=== PATIENT | female | born 1990 | race Caucasian/White ===

== ENCOUNTER → 2016-12-04 | Outpatient (CLI) | payer OTHER | END | disposition home or self-care (01) | LOC: C.PAPS 08:20 | PROVIDERS: ATTEND Obstetrics & Gynecology | DX: Z12.4 Encounter for screening for malignant neoplasm of cervix (principal) ==

== ENCOUNTER → 2017-02-09 | Outpatient (CLI) | payer OTHER | END | disposition home or self-care (01) | LOC: C.PATHSPEC 14:33 | PROVIDERS: ATTEND Dermatology | DX: D23.72 Other benign neoplasm of skin of left lower limb, including hip (principal) ==

== ENCOUNTER → 2017-05-23 | Outpatient (CLI) | payer OTHER | END | disposition home or self-care (01) | LOC: C.LABPVFM 07:45 | PROVIDERS: ATTEND Family Medicine | DX: N83.209 Unspecified ovarian cyst, unspecified side (principal) ==

== ENCOUNTER → 2017-08-09 | Outpatient (CLI) | payer OTHER ==
[2017-08-09 14:02] LABS: BLOOD UREA NITROGEN 17 mg/dl (7-18); CREATININE 1.01 mg/dl (0.60-1.20); GLUCOSE 86 mg/dl (70-99)
[2017-08-09 14:03] LABS: CALCIUM 8.4 mg/dl (8.5-10.1); CARBON DIOXIDE 26 mmol/L (21-32); CHOLESTEROL 106 mg/dl (0-200); LDL CHOLESTEROL CALCULATED 29 mg/dl; POTASSIUM 4.3 mmol/L (3.5-5.1); SODIUM 135 mmol/L (136-145)
== END | disposition home or self-care (01) ==
LOC: C.LABPVFM 07:50
PROVIDERS: ATTEND Family Medicine
DX: Z13.220 Encounter for screening for lipoid disorders (principal); Z13.1 Encounter for screening for diabetes mellitus

== ENCOUNTER 2019-07-01 07:39 | Inpatient (IN) ==
[2019-07-01] MEDS ORDERED: OXYTOCIN 30 UNITS/500 ML BAG IV PRN ×3 (08:42→20:20)
[2019-07-01 09:11] LABS: Hematocrit (blood only) 35.1 % (37-47); Hemoglobin 12.1 g/dL (12.0-16.0); Mean Corpuscular Hemoglobin 32.9 pg (25-34); Mean Corpuscular Volume 95.4 fL (80-100); Mean Platelet Volume 10.2 fL (7.4-10.4); Platelet Count 215 K/uL (130-400); RDW Coefficient of Variation 12.7 % (11.5-14.5); RDW Standard Deviation 44.3 fL (36.4-46.3); Red Blood Count 3.68 M/uL (4.2-5.4); White Blood Count 8.08 K/uL (4.8-10.8)
[2019-07-01] MEDS: LACTATED RINGER'S 1,000 ML IV PRN ×2 (09:12→16:30)
[2019-07-01 09:24] LABS: Mean Corpuscular Hgb Conc 34.5 g/dL (32-36)
--- NOTE | 2019-07-01 10:54 | History & Physical Report ---
Date of Service July 01, 2019 Assessment & Plan (1) : Admit to L&D, EFM/toco, IV fluids, labs. Will begin pitocin, discussed that may need AROM. Patient does not desire epidural. History of Present Illness Chief Complaint: induction of labor Primary Care Provider: Antoinette Muhammad MD 28yo @ 38 08/04 here for induction of labor for postdates. complicated by h/o melanoma - will need to send placenta to pathology. GBS negative. + movement, no vaginal bleeding, no leaking fluid, no regular ctx. Allergies Allergy/AdvReac Type Severity Reaction Status Date / Time Sulfa (Sulfonamide Allergy Unknown Verified 07/01/19 08:46 Antibiotics) walnut Allergy Unknown Verified 07/01/19 08:00 Home Medications Home Medications Medication Instructions Recorded Confirmed Type ferrous sulfate 325 mg (65 mg 325 mg PO DAILY 05/02/19 07/01/19 History iron) tablet,delayed release PNV cmb#95-ferrous fumarate-FA 1 tab PO DAILY 07/01/19 07/01/19 History [] calcium acetate 667 mg PO DAILY 07/01/19 07/01/19 History docosahexaenoic acid [DHA 1 mg PO DAILY 07/01/19 07/01/19 History Algal-900] mecobalamin (vitamin B12) [B12 1 mcg PO DAILY 07/01/19 07/01/19 History Active] Patient History Medical History Malignant melanoma Ovarian cyst Varicella Surgical History S/P wisdom tooth extraction Status post tonsillectomy and adenoidectomy Family History Grandmother (Paternal) Diabetes Hypertension Family/Other Down syndrome Grandfather (Maternal) Hypertension Dyslipidemia Mother Dyslipidemia Denies family history of Ovarian cancer Breast cancer Colorectal cancer Social History Preferred Language: Mohawk Communication Ability: Effective Beliefs That Will Affect Care: None marital status: / Current Living Situation: Significant Other current occupational status: employed Other Information That Helps Us Care for You: No Feels Safe at Home: Yes Safety Concerns: Feels Safe At This Time Smoking Status: Never smoker Hx Alcohol Use: No Hx Substance Use: No Review of Systems All systems reviewed & are unremarkable except as noted in HPI & below Physical Exam Physical Exam: Cervix: 2-3/90/-2 Constitutional: WD/WN, vitals as above Respiratory: normal respiratory effort, lungs clear to auscultation no respiratory distress Cardiovascular: Rate/Rhythm: regular rate and regular rhythm Gastrointestinal (Abdomen): Inspection/Auscultation: abdomen normal to inspection Percussion/Palpation: abdomen soft; abdomen nontender Gravid. No s/s chorio or abruption. Skin: no rashes, warm and dry Psychiatric: A+Ox3, euthymic affect Results & Data Vital Signs (Past 12 Hours) Vital Signs Temp Pulse Resp BP 07/01/19 10:15 86 107/71 07/01/19 09:16 86 111/67 07/01/19 08:05 36.9 C 16 07/01/19 07:49 93 H 116/70 Monitoring External Monitor FHT Cat 1 Tocodynamometer No reg ctx Coding Level of Care Code None Diagnoses Z34.90
--- NOTE | 2019-07-01 13:26 | Labor Progress Brief Note ---
Date of Service July 01, 2019 Subjective Starting to feel cramping. FHT Cat 1 [place] Q 2-4 SVE /-2 AROM performed for clear fluid. Continue to labor. Results & Data Vital Signs (Past 12 Hours) Vital Signs Temp Pulse Resp BP 07/01/19 12:21 36.3 C L 72 16 105/67 07/01/19 11:14 83 118/74 07/01/19 10:15 86 107/71 07/01/19 09:16 86 111/67 07/01/19 08:05 36.9 C 16 07/01/19 07:49 93 H 116/70 Coding Level of Care Code None
[2019-07-01] MEDS ORDERED: ePHEDrine sulfate 50 MG/ML AMP ONE (16:25)
[2019-07-01] MEDS ORDERED: fentaNYL citrate 100 MCG/2 ML VIAL ONE (16:25)
[2019-07-01] MEDS ORDERED: BUPIVACAINE 0.25% 30 ML VIAL ONE (16:25)
[2019-07-01] MEDS ORDERED: fentaNYL 2MCG/ML ROPIV 1.25MG/ML 100 ML BAG EPI ONE (16:26)
--- NOTE | 2019-07-01 17:30 | Anesthesiology Consultation ---
Date of Service July 01, 2019 Assessment & Plan Chart Review Chart Review: Acceptable Risk for Labor Epidural Consults Requested none History Height/Weight Height: 5 ft 4 in Weight: 68.946 kg Allergies Allergy/AdvReac Type Severity Reaction Status Date / Time Sulfa (Sulfonamide Allergy Unknown Verified 07/01/19 08:46 Antibiotics) walnut Allergy Unknown Verified 07/01/19 08:00 Medications Home Medications Medication Instructions Recorded Confirmed Last Taken ferrous sulfate 325 mg (65 mg 325 mg PO DAILY 05/02/19 07/01/19 Unknown iron) tablet,delayed release PNV cmb#95-ferrous fumarate-FA 1 tab PO DAILY 07/01/19 07/01/19 07/01/19 [] calcium acetate 667 mg PO DAILY 07/01/19 07/01/19 07/01/19 docosahexaenoic acid [DHA 1 mg PO DAILY 07/01/19 07/01/19 07/01/19 Algal-900] mecobalamin (vitamin B12) [B12 1 mcg PO DAILY 07/01/19 07/01/19 07/01/19 Active] Active Medications Generic Name Dose Route Start Last Admin Trade Name Freq PRN Reason Stop Dose Admin Lactated Ringer's 1,000 mls @ 125 mls/hr 07/01/19 08:42 07/01/19 16:55 Lr IV 07/03/19 08:41 125 mls/hr .Q8H PRN Infusion L&D Protocol Protocol Oxytocin 30 units in 500 mls @ 13 mls/hr 07/01/19 08:43 07/01/19 12:55 Pitocin IV 07/03/19 08:42 0.78 units/hr .Q24H PRN 13 mls/hr Labor Induction/Augmentation Titration Protocol 0.78 UNITS/HR Past Medical History Medical History Malignant melanoma Ovarian cyst Varicella Past Family History Family History Grandmother (Paternal) Diabetes Hypertension Family/Other Down syndrome Grandfather (Maternal) Hypertension Dyslipidemia Mother Dyslipidemia Denies family history of Ovarian cancer Breast cancer Colorectal cancer Past Surgical History Surgical History S/P wisdom tooth extraction Status post tonsillectomy and adenoidectomy Social History Smoking Status: Never smoker Hx Alcohol Use: No Hx Substance Use: No Physical Exam Vital Signs Last Vital Signs Temp 36.3 C L 07/01/19 12:21 Pulse 99 H 07/01/19 17:25 Resp 16 07/01/19 12:21 BP 101/64 07/01/19 17:25 Pulse Ox 89 L 07/01/19 17:24 Testing Laboratory Results 07/01/19 08:54
[2019-07-01] MEDS ORDERED: DiphenhydrAMINE HCL 50 MG/ML VIAL IV PRN (17:31)
[2019-07-01] MEDS ORDERED: NALOXONE HCL 0.4 MG/1 ML VIAL/CARP IV PRN (17:31)
[2019-07-01] MEDS ORDERED: NALBUPHINE HCL INJ 10 MG/ML AMP IV PRN (17:31)
[2019-07-01] MEDS ORDERED: NALOXONE HCL 1 MG in SODIUM CHLORIDE 0.9% 1000ML 1,000 ML IV PRN (17:31)
[2019-07-01] MEDS ORDERED: ePHEDrine sulfate 50 MG/ML AMP IV PRN (17:31)
[2019-07-01] MEDS ORDERED: fentaNYL 2MCG/ML ROPIV 1.25MG/ML 100 ML BAG EPI PRN (17:31)
--- NOTE | 2019-07-01 17:52 | Labor Progress Brief Note ---
Date of Service July 01, 2019 Subjective Still with pain with ctx with epidural. FHT 140s, mod theresa, +accels, +variable decels SVE: 10/100/+1 Will labor down and begin to push when she feels pressure. Results & Data Vital Signs (Past 12 Hours) Vital Signs Temp Pulse Resp BP Pulse Ox 07/01/19 17:49 90 103/72 100 07/01/19 17:45 91 H 125/66 07/01/19 17:44 94 H 100 07/01/19 17:39 91 H 100 07/01/19 17:36 96 H 107/63 92 07/01/19 17:34 97 H 100 07/01/19 17:32 99 H 104/57 L 07/01/19 17:29 101 H 100 07/01/19 17:25 99 H 101/64 07/01/19 17:24 107 H 89 L 07/01/19 17:23 100 H 106/61 07/01/19 17:21 98 H 116/63 07/01/19 17:19 97 H 111/61 99 07/01/19 17:17 117 H 119/77 07/01/19 17:15 112 H 120/73 07/01/19 17:14 84 127/69 99 07/01/19 17:09 108 H 80 L 07/01/19 17:05 99 H 121/68 07/01/19 17:04 100 H 95 07/01/19 17:02 98 H 91 07/01/19 16:59 102 H 84 L 07/01/19 16:57 94 H 87 L 07/01/19 16:54 111 H 99 07/01/19 16:51 81 130/90 07/01/19 16:50 104 H 93 07/01/19 16:49 100 H 97 07/01/19 16:44 100 H 90 07/01/19 16:36 90 130/68 07/01/19 16:35 101 H 91 07/01/19 16:34 101 H 97 07/01/19 16:21 104 H 108/52 L 07/01/19 16:05 83 123/80 07/01/19 15:35 84 129/76 07/01/19 15:20 100 H 118/95 07/01/19 14:28 63 122/71 07/01/19 13:28 84 115/75 07/01/19 12:21 36.3 C L 72 16 105/67 07/01/19 11:14 83 118/74 07/01/19 10:15 86 107/71 07/01/19 09:16 86 111/67 07/01/19 08:05 36.9 C 16 07/01/19 07:49 93 H 116/70 Coding Level of Care Code None
[2019-07-01] MEDS ORDERED: METHYLERGONOVINE MALEATE 0.2 MG/ML AMP ONE (19:41)
--- NOTE | 2019-07-01 20:01 | Delivery Summary ---
Vaginal Delivery Summary Date of Service July 01, 2019 Vaginal Delivery Summary Vaginal Delivery Summary: Pre-delivery diagnoses: 28yo @ 38 4/7, IOL for postdates, h/o melanoma Post-delivery diagnoses: same Procedure: spontaneous vaginal delivery, manual extraction of placenta Surgeon: Ofleia Ochoa DO Complications: none Findings: Viable male . Apgars: 8/9 . Weight pending, please see nursery records Estimated blood loss: 400ml Description of delivery: The patient progressed to complete with epidural anesthesia. She then began to push. She spontaneously vaginally delivered a viable from the cephalic presentation. The head delivered in PRINCESS position. No nuchal. The anterior shoulder delivered, followed by the posterior shoulder, followed by the body. The baby was placed on mother's abdomen and a spontaneous cry was heard. Delayed cord clamping was employed, and the cord was doubly clamped and cut. Cord blood was obtained. During delivery of the placenta, avulsion of the cord occurred during gentle traction. Therefore, the placenta was delivered by manual extraction. The uterus and vagina were swept of clots and debris. IV pitocin was given. The uterus was initially boggy and atonic, therefore one dose of methergine was given and the bladder was emptied with a red-rubber catheter. The uterus became firm with manual uterine massage. The cervix, vagina, and perineum were inspected and a superficial 1st degree laceration was noted and because it was hemostatic, did not require repair. Excellent hemostasis was observed. Uterus was firm. The mother and baby are recovering in stable and good condition in the room. Sponge and instrument counts were correct x 2. I discussed the manual extraction of placenta and avulsion of cord with patient, will give ancef x 24h to reduce risk of infection. Also discussed need to send placenta to path d/t h/o melanoma. Ofelia Ochoa DO FACOO
[2019-07-01] MEDS ORDERED: HYDROCORTISONE ACETATE 25 MG SUPP PR PRN (20:20)
[2019-07-01] MEDS ORDERED: ACETAMINOPHEN 325 MG TAB PO PRN (20:20)
[2019-07-01] MEDS ORDERED: METHYLERGONOVINE MALEATE 0.2 MG/ML AMP IM ONE (20:20)
[2019-07-01] MEDS ORDERED: SUPERCREAM 0.870% 15 GM JAR EXT PRN (20:20)
[2019-07-01] MEDS ORDERED: BENZOCAINE 20% AER SPR 82.5 GM CAN EXT PRN (20:20)
[2019-07-01] MEDS ORDERED: bisacodyL 10 MG SUPP PR PRN (20:20)
[2019-07-01] MEDS ORDERED: DIPHTHERIA/TETANUS/PERTUSSIS 0.5 ML SYR/VIAL IM ONE (20:20)
[2019-07-01] MEDS ORDERED: OXYCODONE/ACETAMINOPHEN 5mg/325mg TAB PO PRN (20:20)
[2019-07-01] MEDS: DOCUSATE SODIUM 100 MG CAP PO SCH (21:10)
[2019-07-01] MEDS: CEFAZOLIN 1000MG 1,000 MG/7.5 ML SYR IV SCH (21:16)
--- NOTE | 2019-07-01 23:22 | Anesthesia Procedure Note ---
Date of Service July 01, 2019 Anesthesia Post Epidural Note Vital Signs Vital Signs: Temp Pulse Resp BP Pulse Ox 36.4 C L 83 18 122/74 100 07/01/19 22:15 07/01/19 22:15 07/01/19 22:15 07/01/19 22:15 07/01/19 22:15 Pain Intensity Lower Medial Abdomen: Pain Intensity: 10 Notes Mental Status: alert / awake / arousable Nausea / Vomiting: adequately controlled Pain: adequately controlled Airway Patency, RR, SpO2: stable & adequate BP & HR: stable & adequate Hydration State: stable & adequate Neuraxial Anesthesia: was administered and sensory block is resolving Anesthetic Complications: no major complications apparent and Pt Satisfied with anesthetic care Epidural: Removed without complications and With tip intact
[2019-07-01] MEDS: IBUPROFEN 600 MG TAB PO PRN (23:34)
[2019-07-02] MEDS: IBUPROFEN 600 MG TAB PO PRN ×3 (03:23→13:56)
[2019-07-02] MEDS: CEFAZOLIN 1000MG 1,000 MG/7.5 ML SYR IV SCH ×2 (04:14→13:39)
--- NOTE | 2019-07-02 06:08 | Obstetrical Progress Note ---
Date of Service <Brayan Cisneros MD - Last Filed: 07/02/19 06:23> July 02, 2019 Assessment & Plan <Brayan Cisneros MD - Last Filed: 07/02/19 06:23> (1) : PPD#1 - continue routine care - encourage ambulation, and oral intake - after discharge will have follow-up in 6 weeks Subjective <Brayan Cisneros MD - Last Filed: 07/02/19 06:23> Ms. Christensen is a 28 y/o female ; PPD #1 following spontaneous vaginal delivery; doing well this morning; having minimal abdominal cramping/pain; voiding well; tolerating meals overnight; and able to ambulate some; some persistent spotting with intermittent improvement this morning. Review of Systems Constitutional: denies fever; chills; sweats; headache Respiratory: denies shortness of breath, difficulty breathing Cardiac: denies chest pain; palpitations; chest pressure Breast: denies breast pain : denies dysuria Physical Exam <Brayan Cisneros MD - Last Filed: 07/02/19 06:23> General: alert; oriented; no acute distress Cardiac: RRR; no m/g/r Respiratory: CTAB a/p; no wheezes/rales/rhonchi; no increased work of breathing; symmetrical chest rise; no respiratory distress Abdomen: soft; NT/ND; bowel sounds positive Uterus: uterine fundus firm; palpable 1cm below umbilicus Lower extrem: no lower extremity edema or swelling; no deep calf pain; Taylor's sign negative b/l Results & Data <Brayan Cisneros MD - Last Filed: 07/02/19 06:23> Vital Signs (Past 12 Hours) Vital Signs Temp Pulse Pulse Resp BP BP Pulse Ox 07/02/19 03:30 36.6 C 67 16 106/67 97 07/01/19 23:15 36.5 C 89 17 119/73 96 07/01/19 22:15 36.4 C L 83 18 122/74 100 07/01/19 21:52 86 112/72 07/01/19 21:37 90 115/73 07/01/19 21:23 87 111/66 07/01/19 20:53 86 108/64 07/01/19 20:37 83 111/71 03/03/20 20:22 81 109/70 07/01/19 20:07 82 115/73 07/01/19 19:52 92 H 109/66 93 07/01/19 19:51 36.7 C 18 07/01/19 19:50 102 H 97 07/01/19 19:45 90 97 07/01/19 19:42 90 103/62 07/01/19 19:40 82 97 07/01/19 19:37 99 H 113/61 07/01/19 19:35 97 H 99 07/01/19 19:29 92 H 99 07/01/19 19:24 105 H 127/64 100 07/01/19 19:19 96 H 99 07/01/19 19:14 128 H 100 07/01/19 19:09 94 H 100 07/01/19 19:08 95 H 130/79 07/01/19 19:05 36.7 C 20 07/01/19 19:04 87 100 07/01/19 19:01 103 H 93 07/01/19 18:59 98 H 100 07/01/19 18:54 92 H 118/74 94 07/01/19 18:52 98 H 87 L 07/01/19 18:49 87 100 07/01/19 18:47 92 H 91 07/01/19 18:44 80 97 07/01/19 18:39 76 99 07/01/19 18:37 88 122/73 07/01/19 18:34 81 99 07/01/19 18:32 36.9 C 73 18 124/74 07/01/19 18:29 84 100 07/01/19 18:27 94 H 120/79 93 07/01/19 18:24 87 100 07/01/19 18:22 84 126/79 07/01/19 18:19 91 H 99 07/01/19 18:16 82 18 113/75 07/01/19 18:14 79 97 07/01/19 18:13 77 94 07/01/19 18:11 78 117/77 07/01/19 18:09 80 100 07/01/19 18:08 83 94 07/01/19 18:07 72 118/78 Laboratory Results 07/01/19 Range/Units 08:54 WBC 8.08 (4.8-10.8) K/uL RBC 3.68 L (4.2-5.4) M/uL Hgb 12.1 (12.0-16.0) g/dL Hct 35.1 L (37-47) % MCV 95.4 (80-100) fL MCH 32.9 (25-34) pg MCHC 34.5 (32-36) g/dL RDW Std Deviation 44.3 (36.4-46.3) fL RDW Coeff of [place] 12.7 (11.5-14.5) % Plt Count 215 (130-400) K/uL MPV 10.2 (7.4-10.4) fL Medications Administered Current Inpatient Medications Acetaminophen (Tylenol) 650 mg PO Q6H PRN PRN Reason: Pain/LLOYD/Fever Stop: 07/31/19 20:19 Benzocaine (Dermoplast Pain Relieving [place]) 1 appln EXT PRN PRN PRN Reason: Perineal Discomfort Stop: 07/31/19 20:19 Last Admin: 07/02/19 03:23 Dose: 82.5 appln Documented by: Bisacodyl (Dulcolax) 5 mg PO 1999 [facility] Stop: 07/02/19 20:01 Bisacodyl (Dulcolax) 10 mg [place] DAILY PRN PRN Reason: No BM on 2nd post- day Stop: 07/31/19 20:19 Calcium Acetate (Phoslo) 667 mg PO DAILY [facility] Stop: 08/01/19 08:59 Cocaine HCl (Supercream 0.870%) 1 gm EXT BID PRN PRN Reason: Hemorrhoidal Inflammation Stop: 07/15/19 20:19 Docusate Sodium (Colace) 100 mg PO DAILY@08,21 [facility] Stop: 07/31/19 20:59 Last Admin: 07/01/19 21:10 Dose: Not Given Documented by: Ferrous Sulfate (Feosol) 325 mg PO DAILY [facility] Stop: 08/01/19 08:59 Hydrocortisone (Anusol Hc) 25 mg SD BID PRN PRN Reason: Hemorrhoidal Inflammation Stop: 07/31/19 20:19 Cefazolin Sodium (Ancef 1000mg) 1,000 mg in 7.5 mls @ 2.5 mls/min IV Q8H [facility] Stop: 07/02/19 13:02 Last Admin: 07/02/19 04:14 Dose: 2.5 mls/min Documented by: Oxytocin (Pitocin) 30 units in 500 mls @ 333.333 mls/hr IV .Q1H30M PRN; Protocol PRN Reason: Bleeding Control Stop: 07/31/19 20:19 Ibuprofen (Motrin) 600 mg PO Q4H PRN PRN Reason: Pain/LLOYD/Cramping/Fever Stop: 07/31/19 20:19 Last Admin: 07/02/19 03:23 Dose: 600 mg Documented by: Oxycodone/Acetaminophen (Percocet 5mg/325mg) 1 tab PO Q4H PRN PRN Reason: Pain not relieved by... Stop: 07/15/19 20:19 Prenat Multivit/[place]/Iron/Folic Ac ( Vitamin) 1 tab PO DAILY@08 [facility] Stop: 08/01/19 07:59 <Ofelia Ochoa DO - Last Filed: 07/02/19 07:12> Co-Signing Physician Notes Resident Physician Supervision Note: I was present with Dr. Cisneros during the history and exam. I discussed the case with the resident and agree with the findings and plan as documented in the note. Any exceptions or clarifications are listed here: PPD#1 doing well. Anticipate DC home tomorrow. Documented By: Ofelia Ochoa DO Resident Activity Tracking <Brayan Cisneros MD - Last Filed: 07/02/19 06:23> Resident Involvement: Resident Care Provided Care Provided: OB Delivery
[2019-07-02 07:23] LABS: Hematocrit (blood only) 30.8 % (37-47); Hemoglobin 10.6 g/dL (12.0-16.0)
[2019-07-02] MEDS ORDERED: FERROUS SULFATE 325 MG TAB PO ONE (07:36)
[2019-07-02] MEDS: CALCIUM ACETATE 667 MG CAP PO SCH (07:37)
[2019-07-02] MEDS: DOCUSATE SODIUM 100 MG CAP PO SCH ×2 (07:38→20:22)
[2019-07-02] MEDS: PRENATAL VITAMIN 1 TAB PO SCH (07:38)
[2019-07-02] MEDS: FERROUS SULFATE 325 MG TAB PO SCH (08:18)
[2019-07-02] MEDS ORDERED: DOCOSAHEXAENOIC ACID PO SCH (09:00)
[2019-07-02] MEDS ORDERED: NON-FORMULARY MEDICATION (Pnv Cmb#95-Ferrous Fumarate-Fa [Prenatal] 1 TAB) PO SCH (09:00)
[2019-07-02] MEDS ORDERED: MECOBALAMIN PO SCH (09:00)
[2019-07-02] MEDS ORDERED: bisacodyL 5 MG TABEC PO SCH (20:00)
[2019-07-03] MEDS: IBUPROFEN 600 MG TAB PO PRN ×2 (01:40→08:51)
--- NOTE | 2019-07-03 06:52 | Obstetrical Progress Note ---
Date of Service <Brayan Cisneros MD - Last Filed: 07/03/19 07:20> July 03, 2019 Assessment & Plan <Brayan Cisneros MD - Last Filed: 07/03/19 07:20> (1) : PPD#1 - continue routine care - encourage ambulation, and oral intake - after discharge will have follow-up in 6 weeks Subjective <Brayan Cisneros MD - Last Filed: 07/03/19 07:20> Ms. Christensen is a 28 y/o female ; PPD #2 following spontaneous vaginal delivery; doing well this morning; having minimal abdominal cramping/pain; voiding well; tolerating meals overnight; and able to ambulate some; some persistent spotting with intermittent improvement this morning. Review of Systems Constitutional: denies fever; chills; sweats; headache Respiratory: denies shortness of breath, difficulty breathing Cardiac: denies chest pain; palpitations; chest pressure Breast: denies breast pain : denies dysuria Physical Exam <Brayan Cisneros MD - Last Filed: 07/03/19 07:20> General: alert; oriented; no acute distress Cardiac: RRR; no m/g/r Respiratory: CTAB a/p; no wheezes/rales/rhonchi; no increased work of breathing; symmetrical chest rise; no respiratory distress Abdomen: soft; NT/ND; bowel sounds positive Uterus: uterine fundus firm; palpable 3cm below umbilicus Lower extrem: 1+ non-pitting edema of lower extrem; no deep calf pain; Taylor's sign negative b/l Results & Data <Brayan Cisneros MD - Last Filed: 07/03/19 07:20> Vital Signs (Past 12 Hours) Vital Signs Temp Pulse Resp BP Pulse Ox 07/02/19 23:30 36.7 C 80 16 119/77 07/02/19 19:30 36.7 C 76 16 130/88 97 Laboratory Results 07/02/19 Range/Units 06:43 Hgb 10.6 L (12.0-16.0) g/dL Hct 30.8 L (37-47) % Medications Administered Current Inpatient Medications Acetaminophen (Tylenol) 650 mg PO Q6H PRN PRN Reason: Pain/LLOYD/Fever Stop: 07/31/19 20:19 Benzocaine (Dermoplast Pain Relieving [place]) 1 appln EXT PRN PRN PRN Reason: Perineal Discomfort Stop: 07/31/19 20:19 Last Admin: 07/02/19 03:23 Dose: 82.5 appln Documented by: Bisacodyl (Dulcolax) 10 mg [place] DAILY PRN PRN Reason: No BM on 2nd post- day Stop: 07/31/19 20:19 Calcium Acetate (Phoslo) 667 mg PO DAILY [facility] Stop: 08/01/19 08:59 Last Admin: 07/02/19 07:37 Dose: 667 mg Documented by: Cocaine HCl (Supercream 0.870%) 1 gm EXT BID PRN PRN Reason: Hemorrhoidal Inflammation Stop: 07/15/19 20:19 Last Admin: 07/02/19 07:48 Dose: 1 gm Documented by: Docusate Sodium (Colace) 100 mg PO DAILY@08,21 [facility] Stop: 07/31/19 20:59 Last Admin: 07/02/19 20:22 Dose: 100 mg Documented by: Ferrous Sulfate (Feosol) 325 mg PO DAILY [facility] Stop: 08/01/19 08:59 Last Admin: 07/02/19 08:18 Dose: Not Given Documented by: Hydrocortisone (Anusol Hc) 25 mg [place] BID PRN PRN Reason: Hemorrhoidal Inflammation Stop: 07/31/19 20:19 Oxytocin (Pitocin) 30 units in 500 mls @ 333.333 mls/hr IV .Q1H30M PRN; Protocol PRN Reason: Bleeding Control Stop: 07/31/19 20:19 Ibuprofen (Motrin) 600 mg PO Q4H PRN PRN Reason: Pain/LLOYD/Cramping/Fever Stop: 07/31/19 20:19 Last Admin: 07/03/19 01:40 Dose: 600 mg Documented by: Oxycodone/Acetaminophen (Percocet 5mg/325mg) 1 tab PO Q4H PRN PRN Reason: Pain not relieved by... Stop: 07/15/19 20:19 Prenat Multivit/[place]/Iron/Folic Ac ( Vitamin) 1 tab PO DAILY@08 [facility] Stop: 08/01/19 07:59 Last Admin: 07/02/19 07:38 Dose: 1 tab Documented by: Shawn Presley MD, FACOG - Last Filed: 07/03/19 08:07> Co-Signing Physician Notes Resident Physician Supervision Note: I was present with Dr. Cisneros during the history and exam. I discussed the case with the resident and agree with the findings and plan as documented in the note. Any exceptions or clarifications are listed here: pt doing well, discussed edema and answered her ?s. eating, voiding, ambulating without problem. . ff 2 down,nt, nt calves. ppd#2 stable for d/c home, f/u 6wks pp check, instructions reviewed. . Documented By: Evelyn Presley MD, FACOG Resident Activity Tracking <Brayan Cisneros MD - Last Filed: 07/03/19 07:20> Resident Involvement: Resident Care Provided Care Provided: OB Delivery
[2019-07-03] MEDS: DOCUSATE SODIUM 100 MG CAP PO SCH (08:50)
[2019-07-03] MEDS: PRENATAL VITAMIN 1 TAB PO SCH (08:50)
[2019-07-03] MEDS: FERROUS SULFATE 325 MG TAB PO SCH (08:50)
[2019-07-03] MEDS: CALCIUM ACETATE 667 MG CAP PO SCH (08:53)
== END 2019-07-03 14:00 | disposition home or self-care (01) | DRG 807 ==
LOC: 4S1 07:39 → 4S2 22:15

== ENCOUNTER 2021-12-16 10:28 | Inpatient (IN) ==
--- NOTE | 2021-12-16 11:03 | History & Physical Report ---
Date of Service December 16, 2021 History of Present Illness Primary Care Provider: NO PCP Allergies Allergy/AdvReac Type Severity Reaction Status Date / Time walnut Allergy Intermediate Unknown Verified 12/16/21 10:45 Sulfa (Sulfonamide Allergy Unknown Verified 12/16/21 10:45 Antibiotics) Home Medications Medication Instructions Recorded Confirmed Type docosahexaenoic acid 300 mg 1 mg PO DAILY 07/01/19 12/13/21 History capsule (DHA Algal-900) vit no.95-ferrous 1 tab PO DAILY 07/01/19 12/16/21 History fumarate 28 mg-folic acid 800 mcg tablet () cholecalciferol (vitamin D3) 125 125 mcg PO DAILY 12/16/21 12/16/21 History mcg (5,000 unit) tablet (Vitamin D3) Patient History Medical History Malignant melanoma Ovarian cyst Varicella Surgical History S/P wisdom tooth extraction Status post tonsillectomy and adenoidectomy Family History Grandmother (Paternal) Diabetes Hypertension Family/Other Down syndrome Grandfather (Maternal) Hypertension Dyslipidemia Mother Dyslipidemia Denies family history of Ovarian cancer Breast cancer Colorectal cancer Social History (Updated 12/16/21 @ 10:43 by Ashanti Miller RN) Smoking Status: Never smoker Hx Alcohol Use: No Hx Substance Use: No Preferred Language: Tongan Communication Ability: Effective Visual Impairment: No Limitations Hearing Ability: Normal Population Health Manager Required: No Beliefs That Will Affect Care: None marital status: / marital status details: regulo Guillermo (42) [phone] Current Living Situation: Family and Significant Other Current Living Situation Comment: lives with fob, son, dog, cat-fob changing litter current occupational status: employed current occupation: [employer] m[employer] Other Information That Helps Us Care for You: No Feels Safe at Home: Yes Safety Concerns: Feels Safe At This Time Gender Identity: Female Assistive Devices: None Results & Data ([facility]) Vital Signs (Past 12 Hours) Vital Signs Temp Pulse Resp BP 08/19/22 10:35 36.9 C 100 H 20 132/81
[2021-12-16] MEDS ORDERED: OXYTOCIN 30 UNITS/500 ML BAG IV PRN ×3 (11:26→19:54)
[2021-12-16] MEDS ORDERED: LACTATED RINGER'S 1,000 ML IV PRN (11:26)
[2021-12-16] MEDS ORDERED: PENICILLIN G POTASSIUM 3 MU in DEXTROSE 5% 100 ML IV PRN (11:45)
[2021-12-16 11:51] LABS: Hematocrit (blood only) 32.6 % (34.1-44.9); Hemoglobin 11.3 g/dl (12.0-16.0); Mean Corpuscular Hgb Conc 34.7 g/dL (32.0-36.0); Mean Corpuscular Volume 92.4 fL (80.0-100.0); Platelet Count 226 K/uL (130-400); RDW Coefficient of Variation 12.8 % (11.5-14.5); RDW Standard Deviation 43.4 fL (36.4-46.3); Red Blood Count 3.53 M/uL (3.93-5.22); White Blood Count 10.32 K/ul (4.8-10.8)
[2021-12-16] MEDS ORDERED: PENICILLIN G POTASSIUM 6 MU in DEXTROSE 5% 250 ML IV ONE (12:00)
--- NOTE | 2021-12-16 12:27 | History & Physical Report ---
Date of Service December 16, 2021 Assessment & Plan (1) Placental cyst affecting in second trimester: (2) Group beta Strep positive: (3) PROM (premature rupture of membranes): (4) Personal history of malignant melanoma of skin: Plan 31 y/o at 37 6/7 wga presents w/ PROM VSS Fetus cat 1 PROM - pt is 3cm, not been checked yet so not sure if this is progression. Discussed expectant management for few hours, ambulate and see if will progress. Discussed pitocin if does not in a few hours due to GBS+, pt would prefer to avoid pitocin if possible. Discussed RVB if not changing at that time with GBS+ GBS+, pcn ordered epidural prn Admission and Anticipated Discharge Date Admission Date: December 16, 2021 History of Present Illness Chief Complaint: LOF Primary Care Provider: ARTIE PCP 31 y/o at 37 6/7 wga presents due to LOF since 7am. +FM; denies reg ctx, VB PNI Hx malig melanoma simple placental cyst at 24 wks s/p MFM Past [employer] hx: G1 2018 SAB G2 2019 G3 current denies hx STIs 06/2021 neg cotest Allergies Allergy/AdvReac Type Severity Reaction Status Date / Time walnut Allergy Intermediate Unknown Verified 12/16/21 10:45 Sulfa (Sulfonamide Allergy Unknown Verified 12/16/21 10:45 Antibiotics) Home Medications Medication Instructions Recorded Confirmed Type docosahexaenoic acid 300 mg 1 mg PO DAILY 07/01/19 12/13/21 History capsule (DHA Algal-900) vit no.95-ferrous 1 tab PO DAILY 07/01/19 12/16/21 History fumarate 28 mg-folic acid 800 mcg tablet () cholecalciferol (vitamin D3) 125 125 mcg PO DAILY 12/16/21 12/16/21 History mcg (5,000 unit) tablet (Vitamin D3) Patient History Medical History (Updated 12/16/21 @ 12:25 by Luna Helton MD) Malignant melanoma Ovarian cyst Varicella Surgical History S/P wisdom tooth extraction Status post tonsillectomy and adenoidectomy Family History Grandmother (Paternal) Diabetes Hypertension Family/Other Down syndrome Grandfather (Maternal) Hypertension Dyslipidemia Mother Dyslipidemia Denies family history of Ovarian cancer Breast cancer Colorectal cancer Social History (Updated 12/16/21 @ 10:43 by Ashanti Miller RN) Smoking Status: Never smoker Hx Alcohol Use: No Hx Substance Use: No Preferred Language: Slovak Communication Ability: Effective Visual Impairment: No Limitations Hearing Ability: Normal Fur Comber Required: No Beliefs That Will Affect Care: None marital status: / marital status details: fob Emil Guillermo (42) [phone] Current Living Situation: Family and Significant Other Current Living Situation Comment: lives with fob, son, dog, cat-fob changing litter current occupational status: employed 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 Other Information That Helps Us Care for You: No Feels Safe at Home: Yes Safety Concerns: Feels Safe At This Time Gender Identity: Female Assistive Devices: None Physical Exam Genitourinary: OB Exam Monitor Tracing: + external FHT monitor used, + external uterine monitor used (irreg) and + category I (135/mod/+accel/-decel) SVE 3cm by nursing Results & Data ([place]) Vital Signs (Past 12 Hours) Vital Signs Temp Pulse Resp BP 12/16/21 10:35 98.4 F 100 H 20 132/81 Laboratory Results OB Labs: Blood Type A Positive 06/28/21 Antibody ScreenD NEGATIVE 06/28/21 Hemoglobin 11.7 g/dl (12.0-16.0) L 11/08/21 Hematocrit 34.8 % (34.1-44.9) 11/08/21 Mean Corpuscular Volume 91.5 fL (80-100) 06/28/21 Platelet Count 314 K/uL (130-400) 06/28/21 Rubella IgG Antibody Immune (Immune) 06/28/21 Rapid Plasma Reagin Nonreactive (Nonreactive) 06/28/21 Hepatitis B Surface Antigen Neg (Neg) 06/28/21 Hepatitis C Antibody Neg (Neg) 06/28/21 HIV (1&2) Ab and P24 Ag, 4th Gener Neg (Neg) 06/28/21 Glucose 1 Hour 50 gm Load 111 mg/dl (70-130) 07/20/21 OB Optional Labs: Chlamydia trachomatis RNA NOT DETECTED (NOT DETECTED) 06/28/21 Neisseria gonorrhoeae RNA NOT DETECTED (NOT DETECTED) 06/28/21 Labs Reviewed: Declined MSAFP. low risk panorama, declined cf/sma Diagnostic Findings post plac Coding Level of Care Code None Diagnoses Placental cyst affecting in second trimester O43.192 Group beta Strep positive B95.1 PROM (premature rupture of membranes) O42.90 Personal history of malignant melanoma of skin Z85.820
[2021-12-16] MEDS ORDERED: ePHEDrine sulfate 50 MG/ML AMP ONE (19:04)
[2021-12-16] MEDS ORDERED: SODIUM CHLORIDE 0.9% INJ 10 ML VIAL ONE (19:05)
[2021-12-16] MEDS ORDERED: LIDOCAINE 2%/EPINEPHRINE 1:200,000 20 ML SDV ONE (19:05)
[2021-12-16] MEDS ORDERED: fentaNYL 2MCG/ML ROPIVACAINE 1.25MG/ML 100 ML BAG EPI ONE (19:05)
[2021-12-16] MEDS ORDERED: BUPIVACAINE 0.25% 30 ML VIAL ONE (19:05)
[2021-12-16] MEDS ORDERED: fentaNYL citrate 100 MCG/2 ML VIAL ONE (19:05)
[2021-12-16] MEDS ORDERED: ERYTHROMYCIN OP OINT 1 GM PKT ONE (19:29)
[2021-12-16 19:35] VITALS: O2SAT 100
--- NOTE | 2021-12-16 19:37 | Delivery Summary ---
Vaginal Delivery Summary Date of Service December 16, 2021 Vaginal Delivery Summary Spontaneous vaginal delivery the patient presented for premature rupture of membranes at approximately 38 weeks group B strep positive on presentation at the hospital she was offered oxytocin at that stage T she declined but penicillin was started eventually her contraction pattern was an adequate and that she excepted oxytocin she then delivered a baby in occiput anterior position without epidural baby's mouth was suctioned with bulb gentle traction clear fluid no nuchal cord no excessive force easy delivery live vigorous female infant cord clamped and cut cord blood obtained placenta removed with gentle traction IV Pitocin started uterine tone improved estimated blood loss 150 mL on inspection there were no tears sponge instrument counts correct
[2021-12-16] MEDS ORDERED: IBUPROFEN 600 MG TAB PO PRN (19:54)
[2021-12-16] MEDS ORDERED: bisacodyL 10 MG SUPP PR PRN (19:54)
[2021-12-16] MEDS ORDERED: DIPHTHERIA/TETANUS/PERTUSSIS 0.5 ML SYR/VIAL IM ONE (19:54)
[2021-12-16] MEDS ORDERED: oxyCODONE/ACETAMINOPHEN 5mg/325mg TAB PO PRN (19:54)
[2021-12-16] MEDS ORDERED: BENZOCAINE 20% AER SPR 82.5 GM CAN EXT PRN (19:54)
[2021-12-16] MEDS ORDERED: ACETAMINOPHEN 325 MG TAB PO PRN (19:54)
[2021-12-16] MEDS ORDERED: HYDROCORTISONE ACETATE 25 MG SUPP PR PRN (19:54)
[2021-12-16] MEDS: DOCUSATE SODIUM 100 MG CAP PO SCH (21:41)
--- NOTE | 2021-12-17 06:31 | Obstetrical Progress Note ---
Date of Service <Sunni Friedman DO - Last Filed: 12/17/21 08:09> December 17, 2021 Assessment & Plan <Sunni Friedman DO - Last Filed: 12/17/21 08:09> (1) PROM (premature rupture of membranes): (2) Group beta Strep positive: (3) Placental cyst affecting in second trimester: (4) Encounter for supervision of normal in multigravida: Plan s/p PPD 1: -Vitals reviewed and WNL, Tmax= 36.9 -Hemoglobin reviewed, 11.3 (12/16) -A+, GBS+, rubella immune -Patient is doing well clinically -Encourage ambulation, monitor and treat pain PRN, monitor lochia -Return to normal diet <Alvaro English MD, FACOG - Last Filed: 12/17/21 08:10> (1) PROM (premature rupture of membranes): (2) Group beta Strep positive: (3) Placental cyst affecting in second trimester: (4) Encounter for supervision of normal in multigravida: Subjective <Sunni Friedman DO - Last Filed: 12/17/21 08:09> Peri is a 31 y/o female who is PPD #1 following at 37 6/7 weeks. Patient was seen and examined at bedside. She reports feeling well overall this morning. Pain well managed on analgesics, just notes some back pain this morning. Voiding without issue. Tolerating meals overnight and able to ambulate some. Has some persistent lochia with some improvement this morning. Constitutional: no fever, no chills or no sweats Respiratory: no cough, no dyspnea or no wheezing Cardiovascular: no chest pain, no palpitations or no calf pain Breast: no breast pain Genitourinary (female): no dysuria Neurologic: no headache(s) Physical Exam <Sunni Friedman DO - Last Filed: 12/17/21 08:09> Constitutional WD/WN, vitals as above no acute distress Respiratory no respiratory distress Auscultation: lungs clear to auscultation bilaterally; no rales, no rhonchi and no wheezes Cardiovascular RRR, no murmur, no edema Extremities: no calf tenderness and no edema Negative Taylor's sign bilaterally. Gastrointestinal (Abdomen) Inspection/Auscultation: normal bowel sounds Genitourinary Uterine fundus firm, palpable below the umbilicus. Results & Data ([facility]) <Sunni Friedman, - Last Filed: 12/17/21 08:09> Vital Signs (Past 12 Hours) Vital Signs Temp Pulse Pulse Resp BP BP Pulse Ox 12/17/21 03:10 36.9 C 87 16 109/70 12/16/21 23:00 36.6 C 80 18 104/68 12/16/21 20:32 16 12/16/21 20:17 18 12/16/21 19:48 18 12/16/21 21:02 16 12/16/21 20:02 18 12/16/21 19:32 18 12/16/21 21:32 36.6 C 18 12/16/21 21:32 96 H 12/16/21 21:32 127/71 12/16/21 21:17 97 H 12/16/21 21:17 126/74 12/16/21 21:02 94 H 12/16/21 21:02 125/74 12/16/21 20:47 93 H 12/16/21 20:47 128/74 12/16/21 20:32 90 12/16/21 20:32 124/70 12/16/21 20:17 90 12/16/21 20:17 115/70 12/16/21 20:02 87 12/16/21 20:02 124/69 12/16/21 19:48 94 H 12/16/21 19:48 131/69 12/16/21 19:33 100 12/16/21 19:33 96 H 12/16/21 19:32 101 H 12/16/21 19:32 114/62 12/16/21 19:28 99 12/16/21 19:28 103 H 12/16/21 19:23 99 12/16/21 19:23 111 H 12/16/21 19:18 100 12/16/21 19:18 106 H 12/16/21 19:13 20 12/16/21 19:13 36.3 C L 20 12/16/21 19:13 98 12/16/21 19:13 104 H 12/16/21 19:13 121/58 L O2 Del Method 12/17/21 03:10 Room Air 12/16/21 23:00 Room Air 12/16/21 20:32 12/16/21 20:17 12/16/21 19:48 12/16/21 21:02 12/16/21 20:02 12/16/21 19:32 12/16/21 21:32 12/16/21 21:32 12/16/21 21:32 12/16/21 21:17 12/16/21 21:17 12/16/21 21:02 12/16/21 21:02 12/16/21 20:47 12/16/21 20:47 12/16/21 20:32 12/16/21 20:32 12/16/21 20:17 12/16/21 20:17 12/16/21 20:02 12/16/21 20:02 12/16/21 19:48 12/16/21 19:48 12/16/21 19:33 12/16/21 19:33 12/16/21 19:32 12/16/21 19:32 12/16/21 19:28 12/16/21 19:28 12/16/21 19:23 12/16/21 19:23 12/16/21 19:18 12/16/21 19:18 12/16/21 19:13 12/16/21 19:13 12/16/21 19:13 12/16/21 19:13 12/16/21 19:13 <Alvaro English MD, FACOG - Last Filed: 12/17/21 08:10> Co-Signing Physician Notes Resident Physician Supervision Note: I was present with DrRell [Name of resident] during the history and exam. I discussed the case with the resident and agree with the findings and plan as documented in the note. Any exceptions or clarifications are listed here: [None] Documented By: Alvaro English MD, FACOG Resident Activity Tracking <Sunni Friedman DO - Last Filed: 12/17/21 08:09> Resident Involvement: Resident Care Provided Care Provided: OB Delivery
[2021-12-17 06:57] LABS: Hematocrit (blood only) 32.9 % (34.1-44.9); Hemoglobin 11.5 g/dl (12.0-16.0); Mean Corpuscular Hemoglobin 32.6 pg (25.0-34.0); Mean Corpuscular Volume 93.2 fL (80.0-100.0); Mean Platelet Volume 10.2 fL (9.4-12.3); Platelet Count 226 K/uL (130-400); RDW Coefficient of Variation 12.9 % (11.5-14.5); RDW Standard Deviation 43.8 fL (36.4-46.3); Red Blood Count 3.53 M/uL (3.93-5.22); White Blood Count 11.34 K/ul (4.8-10.8)
[2021-12-17] MEDS: DOCUSATE SODIUM 100 MG CAP PO SCH ×2 (08:54→20:27)
[2021-12-17] MEDS: PRENATAL VITAMIN 1 TAB PO SCH (08:54)
[2021-12-17] MEDS ORDERED: bisacodyL 5 MG TABEC PO SCH (20:00)
--- NOTE | 2021-12-18 07:49 | Obstetrical Progress Note ---
Date of Service December 18, 2021 Assessment & Plan (1) Encounter for care and examination after delivery: 31 yo PP2 from , doing well -Meeting all pp milestones -A+/rubella immune/ -f/u 6 weeks for appt, stable for d/c home today Subjective Ambulation: ambulating normally Voiding: no voiding problems Passing Gas:: Yes Diet Tolerance:: regular diet Lochia:: Small Feeding Type:: breast feeding Pain well managed with medication Review of Systems Denies fevers, chills, n/v, LLOYD, CP, SOB Physical Exam Constitutional WD/WN, vitals as above no acute distress Respiratory normal respiratory effort, lungs clear to auscultation Cardiovascular RRR, no murmur, no edema Gastrointestinal (Abdomen) Percussion/Palpation: abdomen soft; abdomen nontender fundus firm at umbilicus and NT Musculoskeletal BLE symmetric, nonerythematous, nontender Results & Data ([facility]) Vital Signs (Past 12 Hours) Vital Signs Temp Pulse Resp BP O2 Del Method 12/17/21 23:22 98.4 F 74 18 108/68 Room Air
[2021-12-18] MEDS: DOCUSATE SODIUM 100 MG CAP PO SCH (08:26)
[2021-12-18] MEDS: PRENATAL VITAMIN 1 TAB PO SCH (08:26)
[2021-12-18 10:29] VITALS: BP 117/77; PULSE 81; TEMP 98.8
== END 2021-12-18 11:30 | disposition home or self-care (01) | DRG 807 ==
LOC: OPB 10:28 → 4S1 10:30 → 4E2 22:16